=== PATIENT | female | born 1970 | race Caucasian/White ===

== ENCOUNTER 2020-08-07 08:22 | Outpatient (CLI) | payer BC, SELFPAY ==
--- NOTE | ~2020-08-07 | XR_ITS ---
XR ankle RT min 3V 08/07/2020 08:44 INDICATION: Right ankle pain PROCEDURE: 4 views right ankle COMPARISON: No prior studies for comparison. FINDINGS: Fracture, dislocation or subluxation is not identified. There is a small degenerative calca vicky enthesophyte. The soft tissues appear within normal limits. No foreign bodies are identified. IMPRESSION: 1: NO ACUTE BONE OR JOINT ABNORMALITY IDENTIFIED. Reviewed, dictated and finalized at location A. S ARCHITECT
--- NOTE | ~2020-08-07 | XR_ITS ---
XR wrist LT min 3V 08/07/2020 08:44 Indication: Left wrist pain after recent fall Procedure: 4 views of the left wrist Comparison: 02/21/2018 Findings: There is subtle demineralization at the radial styloid, unchanged. No acute fracture or tra umatic malalignment. There is an old ulnar styloid avulsion fracture. Scaphoid within normal limits. Impression: 1: No acute fracture. Reviewed, dictated and finalized at location A. POSTING SUPERVISOR Impression: 1: No acute fracture.
== END 2020-08-07 08:23 | disposition home or self-care (01) ==
PROVIDERS: PCP Family Medicine; Visit Provider Physician Assistant
DX: M25.571 Pain in right ankle and joints of right foot (principal); M25.532 Pain in left wrist
CPT/HCPCS: 73110; 73610

== ENCOUNTER 2023-04-26 08:28 | Outpatient (CLI) | payer BC, SELFPAY ==
--- NOTE | ~2023-04-26 | XR_ITS ---
EXAMINATION: XR foot RT min 3V DATE: 04/26/2023 08:53 INDICATION: Pain and bruising at the proximal right fourth and fifth toes after kicking injury TECHNIQUE: Dorsoplantar, two oblique and lateral views of the right foot were obtained. COMPARISON: None. FINDINGS: Alignment is normal. No fracture. Mild osteoarthritis at the first metatarsophalangeal and a few tars ometatarsal and interphalangeal joints. Small plantar calcaneal spur. Mild soft tissue swelling at th e fifth toe. IMPRESSION: 1. 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 No acute osseous abnormality. Reviewed, dictated and finalized at location A. IMPRESSION: 1. 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 No acute os seous abnormality.
== END 2023-04-26 08:29 | disposition home or self-care (01) ==
PROVIDERS: PCP Family Medicine; Visit Provider Physician Assistant
DX: Z12.31 Encounter for screening mammogram for malignant neoplasm of breast (principal); M19.071 Primary osteoarthritis, right ankle and foot
CPT/HCPCS: 73630

== ENCOUNTER 2025-02-20 11:27 | Emergency (ER) | payer BC, SELFPAY ==
--- NOTE | 2025-02-20 11:34 | ED_ITS ---
HPI - General Adult General Chief complaint: Chest Pain Stated complaint: tingling feeling in head/chest pains Time Seen by Provider: 02/20/25 11:36 Source: patient, RN notes reviewed and old records reviewed Mode of arrival: ambulatory Limitations: no limitations History of Present Illness HPI narrative: 54-year-old female with a history of mitral valve sticking presents for chest pain since 2:00 a.m.. Also reports that the right side of her head has a ?tingling sensation. Patient reports that when she goes from sitting to standing she feels like she is going to pass out. Reports constant tightness of her chest. Patient reports that last time she felt normal was approximately 8:00 p.m. last night, did take a sinus medication Patient denies any vomiting, shortness of breath Denies taking medications daily States that she works for [employer], had her blood pressure taken last night which she reports as 130s over 100s. Related Data Allergies Allergy/AdvReac Type Severity Reaction Status Date / Time No Known Allergies Allergy Unknown Verified 02/20/25 11:56 Review of Systems Review of Systems: All systems reviewed & are unremarkable except as noted in HPI and below Constitutional: Constitutional: Reports no additional constitutional complaints, Denies body ache(s), Denies chills and Denies fever(s) ENT: Reports system reviewed and no additional complaints, except as docu mented Cardiovascular: Cardiovascular: Reports as per HPI, Reports chest pain, Denies syncope, Denies leg edema, Reports lightheadedness and Denies dyspnea Respiratory: Respiratory: Reports no additional respiratory complaints, Denies chest congestion, Denies cough and Denies dyspnea Neurologic: Reports as per HPI and Reports tingling (right side of head) PMFSH Past Medical History Medical History Mitral valve disease Surgical History Surgical History History of hernia surgery Comments At the time of my signature, I reviewed and agree with the nursing past medical, surgical, social, and family history. There is no relevant family history pertinent to the patient complaint. Exam Const: General: cooperative, healthy appearing, comfortable, no acute distress, well developed, alert and well nourished Nutritional Appearance: well nourished and obese Orientation/consciousness: patient oriented x3 Limitations: no limitations HENMT: Head: normal to inspection Mouth: Yes Normal oral and palatal mucosa present, Yes lip normal, Yes tongue normal and Yes moist mucous membranes Eyes: General: appearance normal, both eyes and all related structures Alignment and Position: alignment normal Neck: Neck: normal visual inspection, full ROM, no lymphadenopathy and no meningeal signs Chest: Chest palpation & inspection: normal inspection of the chest Resp: Effort & Inspection: normal respiratory effort and able to speak in complete sentences Auscultation: clear to auscultation bilaterally, no crackles, no rales, no rhonchi and no wheezes Cardio: Rate: regular rate GI: GI Palp: No abdominal tenderness Skin: General skin exam: normal color and no rashes or lesions noted Neuro: General: patient oriented x3, gait normal, moves all extremities and no meningeal signs Cognition (Neuro): normal cognition Speech: normal speech Gait exam (Neuro): Normal gait present Extrem: General: normal to inspection, full ROM, capillary refill normal and normal gait Psych: Appearance: grossly normal and well kempt Mental Status: mental status grossly normal Speech and movement: Normal speech and movement present and Clear speech present Affect: normal affect Attitude: cooperative Course Course Level of Care: Express Care Visit Vital Signs Vital signs: Vital Signs Temperature 97.6 F 02/20/25 11:40 Pulse Rate 64 02/20/25 11:40 Respiratory Rate 20 02/20/25 11:40 Blood Pressure 192/81 H 02/20/25 11:40 Pulse Oximetry 100 02/20/25 11:40 Oxygen Delivery Room Air 02/20/25 11:40 Temperature 97.6 F 02/20/25 11:40 Pulse Rate 64 02/20/25 11:40 Respiratory Rate 20 02/20/25 11:40 Blood Pressure 192/81 H 02/20/25 11:40 Pulse Oximetry 100 02/20/25 11:40 Oxygen Delivery Room Air 02/20/25 11:40 Reviewed Medical Decision Making MDM Narrative Medical decision making narrative: Patient sitting comfortably in exam room. Nontoxic, vitals stable. Patient in no acute distress Patient presents with tingling on the right side of her head, chest pain, type chest tightness Patient being transferred for higher level of care Transfer instructions reviewed with patient, offered EMS, she declined. Family member reports that they will drive. All questions have been answered, and the patient deny any further questions. Some parts of this dictation were generated by voice recognition software and may contain typographical and/or grammatical inaccuracies. Differential Diagnosis Differential Diagnosis: Atypical chest pain, non STEMI, STEMI, costochondritis, COPD, asthma, stroke Medical Records Medical records reviewed: Yes I reviewed the external patient's medical records. Vital Signs Vital Signs: Vital Signs Temperature 97.6 F 02/20/25 11:40 Pulse Rate 64 02/20/25 11:40 Respiratory Rate 20 02/20/25 11:40 Blood Pressure 192/81 H 02/20/25 11:40 Pulse Oximetry 100 02/20/25 11:40 Oxygen Delivery Room Air 02/20/25 11:40 Temperature 97.6 F 02/20/25 11:40 Pulse Rate 64 02/20/25 11:40 Respiratory Rate 20 02/20/25 11:40 Blood Pressure 192/81 H 02/20/25 11:40 Pulse Oximetry 100 02/20/25 11:40 Oxygen Delivery Room Air 02/20/25 11:40 Reviewed Lab Data Lab results reviewed: Yes I reviewed the patient's lab results. Labs: Reviewed ECG Data EKG #1: Attestation: I personally reviewed and interpreted this ECG as follows: ECG completion date: 02/20/25 ECG completion time: 11:46 Prior ECG tracings: not available for review Interpretation: Sinus rhythm, possible anterior myocardial infarction of indeterminate age, abnormal EKG. No ST elevation or depression noted at this time. Ventricular rate of 64, [place] 196, QRS 89. Critical Care Time Critical Care Time Critical Care Time: No Discharge Plan Discharge Clinical Impression: Chest pain Patient Disposition: Acute Care Hospital Condition: Stable Patient Language: Frisian Prescriptions: No Action lidocaine [Lidoderm] 5 % adhesive patch,medicated 1 patch topical DAILY Qty: 15 0RF Rx Instructions: leave on most painful area for up to 12 hrs Follow-up/Referrals: Quiana,SAGE Sandoval [Primary Care Provider, Family Practice]
[2025-02-20 11:40] VITALS: BP 192/81; PULSE 64; RESP 20; TEMP 36.4; O2SAT 100
--- NOTE | 2025-02-20 12:09 | ECG_ITS ---
Test Date: 2025-02-20 11:46:22 Measurements Intervals [place] Rate: 64 P: 30 AL: 198 QRS: 1 QRSD: 89 T: 16 QT: 405 QTc: 420 Interpretive Statements SINUS RHYTHM VOLTAGE CRITERIA FOR LVH BORDERLINE R WAVE PROGRESSION, ANTERIOR LEADS BORDERLINE ECG No previous ECG available for comparison Electronically Signed On 02-20-2025 12:12:17 CDT by Ruben Chan D.O.
== END 2025-02-20 11:53 | disposition short-term general hospital (02) ==
PROVIDERS: Emergency Provider Nurse Practitioner; PCP Physician Assistant
DX: R07.9 Chest pain, unspecified (principal); R94.31 Abnormal electrocardiogram [ECG] [EKG]; I34.0 Nonrheumatic mitral (valve) insufficiency
CPT/HCPCS: 93005; 99213; G0463

== ENCOUNTER 2025-02-20 12:13 | Emergency (ER) | payer BC, SELFPAY ==
[2025-02-20] VITALS (14 sets, daily range): BP systolic 159–166; BP diastolic 82–88; PULSE 61–69; RESP 10–22; O2SAT 99–100
--- NOTE | ~2025-02-20 | XR_ITS ---
EXAMINATION: XR chest 2V 02/20/2025 12:49 INDICATION: Chest pain PROCEDURE: 2 view chest COMPARISON: 09/10/2013 FINDINGS: The lungs are clear. The cardiomediastinal silhouette is within normal limits. There are no pleural effusions. There is no pneumothorax suspected. IMPRESSION: 1: NO ACUTE CARDIOPULMONARY DISEASE. Reviewed, dictated and finalized at location O.
--- NOTE | 2025-02-20 12:15 | ECG_ITS ---
Test Date: 2025-02-20 12:23:56 Measurements Intervals [place] Rate: 62 P: 34 GA: 195 QRS: -2 QRSD: 90 T: 12 QT: 422 QTc: 431 Interpretive Statements SINUS RHYTHM VOLTAGE CRITERIA FOR LVH BORDERLINE ECG Compared to ECG 02/20/2025 11:46:22 No significant changes Electronically Signed On 02-20-2025 12:54:59 CDT by Ruben Chan D.O.
--- OUTSIDE RECORDS SUMMARY | 2025-02-20 12:17 | XMS_ITS | Clinical Summary ---
Author Organization [facility] Address [address] [place] [address] Care Team Providers Care Quantitative Software Engineer Name Role Phone Miscellaneous, Not In File Primary Care Provider Unavailable Allergies No known active allergies Medications fluticasone propionate (FLONASE) 50 mcg/actuation nasal spray fluticasone propionate 50 mcg/actuation nasal spray,suspension Active losartan (COZAAR) 25 mg tablet losartan 25 mg tablet Active Active Problems Problem Noted Date Diagnosed Date Palpitations 12/11/2018 Anxiety 06/18/2018 Headache 06/18/2018 Hypertensive disorder 06/18/2018 Mitral valve regurgitation 06/18/2018 Social History Tobacco Use Types Packs/Day Years Used Date Smoking Tobacco: Never Smokeless Tobacco: Never Tobacco Cessation:Counseling Given: Not Answered Comments No Sex and Gender Information Value Date Recorded Sex Assigned at Not on file 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 Gender Identity Not on file Sexual Orientation Not on file Obstetrics History Last Filed Vital Signs Vital Sign Reading Time Taken Comments Blood Pressure 126/76 11/02/2019 1:00 AM CDT Pulse 79 11/02/2019 1:00 AM CDT Temperature 37.1 C (98.8 F) 11/01/2019 11:36 PM CDT Respiratory Rate 14 11/02/2019 1:00 AM CDT Oxygen Saturation 100% 11/02/2019 1:00 AM CDT Inhaled Oxygen Concentration - - Weight 83.5 kg (184 lb) 11/01/2019 11:34 PM CDT Height 149.9 cm (4' 11) 11/01/2019 11:34 PM CDT Body Mass Index 37.16 11/01/2019 11:34 PM CDT Plan of Treatment Health Maintenance Due Date Last Done Comments Breast Cancer Screening-Mammogram 1972 Cervical Cancer Screening 1972 Colon Cancer Screening-Colonoscopy 1972 Depression Screening 1972 Hepatitis C Screening 1972 DTaP/Tdap/Td Vaccine (1 - Tdap) 11/26/1983 Hepatitis B Screening 1990 Regular Well Visit/Exam 18-64 1990 Zoster Vaccine (1 of 2) 2022 Influenza Vaccine (#1) 2025 05/02/2019 Pneumococcal vaccine <65 Aged Out No longer eligible based on patient's age to complete this topic Insurance [employer] OOS Care Teams Quantitative Software Engineer Relationship Specialty Start Date End Date Miscellaneous, Not In File PCP - General 11/02/19
[2025-02-20 12:34] LABS: Hematocrit 45.3 % (37.0-47.0); Hemoglobin 13.9 g/dL (12.0-15.0); Immature Granulocyte Percent A 0.3 % (0-0.5); Lymphocytes Absolute Auto 1.86 K/mm3 (0.9-3.2); Mean Corpuscular HGB Conc 30.7 g/dl (32-36); Mean Corpuscular Hemoglobin 28.0 pg (26-34); Mean Corpuscular Volume 91.1 fl (80-100); Nucleated Red Blood Cells Absolute Auto 0.000 K/mm3 (0.0-0.012); Nucleated Red Blood Cells Perc 0.0 % (0.0-0.2); Platelet Count Result 268 k/mm3 (150-375); Red Blood Count 4.97 M/mm3 (4.2-5.4); White Blood Count 8.0 K/mm3 (4.5-10.0)
--- NOTE | 2025-02-20 12:39 | ED_ITS ---
HPI - Chest Pain General Chief Complaint: Chest Pain Stated Complaint: sent from , chest tightness Time Seen by Provider: 02/20/25 12:17 History of Present Illness HPI narrative: This is a 54-year-old female with history of mitral valve prolapse he presents to the ED for chest pain. Patient states that yesterday, she had onset of nasal congestion and postnasal drip. She states that while she was at work at [employer], she began to feel a sternal chest tightness that has not changed in severity or quality since then. Denies shortness of breath, fevers, chills, nausea, vomiting, diarrhea, constipation, abdominal pain. Related Data Allergies Allergy/AdvReac Type Severity Reaction Status Date / Time No Known Allergies Allergy Unknown Verified 02/20/25 11:56 Review of Systems 2 Review of Systems: Gen.: Denies fevers or chills Eyes: Denies eye pain or visual change ENT: Denies congestion Respiratory: Denies shortness of breath or cough CV: As per HPI GI: Denies abdominal pain nausea, emesis or diarrhea denies burning, urgency, frequency or hematuria Musculoskeletal: Denies back pain or muscle pain Neuro: Denies numbness, tingling, weakness or focal weakness Skin: Denies rash Except as documented, all other systems reviewed and negative PMFSH Past Medical History Medical History Mitral valve disease Surgical History Surgical History History of hernia surgery Exam 2 Narrative: APPEARANCE: No acute distress, nontoxic, resting in bed EYES: EOMI HEENT: Normocephalic, atraumatic, OMM RESPIRATORY: No respiratory distress Clear to auscultation bilaterally with no rhonchi wheezing or rales. CARDIOVASCULAR: Regular rate and rhythm without murmurs rubs or gallops. ABDOMINAL: Soft, nontender, nondistended, no rebound or guarding MUSCULOSKELETAl: Moves all extremities. No clubbing, cyanosis or edema. NEURO: Awake and alert. Following commands, speech normal, no focal deficits SKIN:: Warm, dry. No rashes lesions or abrasions PSYCHIATRIC: Normal affect/mood, Course Vital Signs Vital signs: Vital Signs Pulse Rate 69 02/20/25 12:19 Respiratory Rate 18 02/20/25 12:19 Pulse Oximetry 100 08/22/25 12:19 Pulse Rate 67 02/20/25 16:06 Respiratory Rate 20 02/20/25 16:06 Blood Pressure 166/88 H 02/20/25 14:02 Pulse Oximetry 99 02/20/25 16:06 Oxygen Delivery Room Air 02/20/25 12:23 MDM - Chest Pain MDM Narrative Medical decision making narrative: 54-year-old female who presented to the ED for sternal chest tightness. On initial evaluation, patient was in no acute distress, afebrile, hemodynamically stable. Patient's EKGs and labs are without significant high risk changes. Cardiac risk factors reviewed. Patient is felt likely low risk for ACS and reasonable for further risk stratification testing as an outpatient. Pain was not sudden or maximal in onset without tearing or ripping quality. No other signs of symptoms suggest aortic dissection. A low-risk Wells criteria is noted, PE is felt to be unlikely. No pneumonia seen on evaluation today. Patient is felt to be a reasonable candidate for continued evaluation as an outpatient. Patient was given prescription for Lidoderm. She was advised follow-up with PCP in the next week for evaluation. Patient was agreeable to plan. Given strict return precautions. Differential Diagnosis Differential diagnosis: Likely atypical chest pain, costochondritis, chest pain and other Medical Records Data Attestation: I reviewed the patient's medical records. Lab Data Attestation: I reviewed the patient's lab results. 02/20/25 12:29 02/20/25 12:29 Labs: Lab Results 02/20/25 02/20/25 Range/Units 12:29 14:59 WBC 8.0 (4.5-10.0) K/mm3 RBC 4.97 (4.2-5.4) M/mm3 Hgb 13.9 (12.0-15.0) g/dL Hct 45.3 (37.0-47.0) % MCV 91.1 (80-100) fl MCH 28.0 (26-34) pg MCHC 30.7 L (32-36) g/dl RDW 13.3 (11.5-14.5) % Plt Count 268 (150-375) k/mm3 MPV 9.0 (7.4-10.4) fl Immature Gran % (Auto) 0.3 (0-0.5) % Neut % (Auto) 67.7 (45.5-73.1) % Lymph % (Auto) 23.4 (18.3-44.2) % [place] % (Auto) 6.7 (2.6-8.5) % Eos % (Auto) 1.3 (0-4.4) % Baso % (Auto) 0.6 (0.2-1.2) % Lymph # (Auto) 1.86 (0.9-3.2) K/mm3 [place] # (Auto) 0.5 (0.1-0.6) K/mm3 Eos # (Auto) 0.1 (0-0.3) K/mm3 Baso # (Auto) 0.1 (0.0-0.1) K/mm3 Abs Immat Gran (auto) 0.02 (0.00-0.031) K/mm3 Absolute Neuts (auto) 5.4 (1.3-6.7) K/mm3 Absolute Nucleated RBC 0.000 (0.0-0.012) K/mm3 Nucleated RBC % 0.0 (0.0-0.2) % PT 12.8 (11.1-14.7) Seconds INR 1.0 APTT 26.6 (22.3-36.8) Seconds Sodium 137 (137-145) mmol/L Potassium 4.2 (3.4-5.0) mmol/L Chloride 104 (98-107) mmol/L Carbon Dioxide 25 (22-30) mmol/L Anion Gap 8 (4-12) mmol/L BUN 10 (7-17) mg/dL Creatinine 0.61 L (0.7-1.0) mg/dL Estim Creat Clear Calc Not Reportable Estimated GFR > 60 (59 - ) Glucose 91 (65-110) mg/dL Calcium 9.5 (8.4-10.2) mg/dL Total Bilirubin 1.2 (0.2-1.3) mg/dL AST 26 (14-36) U/L ALT 18 (6-35) U/L Alkaline Phosphatase 64 (38-126) U/L Troponin I 0.015 0.012 (0.000-0.034) ng/mL NT-Pro-B Natriuret Pep 303 H (19.9-100) pg/mL Total Protein 7.7 (6.3-8.2) g/dL Albumin 4.5 (3.5-5.1) g/dL Lipase 38 (23-300) U/L Imaging Data Radiologist's impression: Impressions Chest X-Ray 02/20/25 12:50 IMPRESSION: 1: NO ACUTE CARDIOPULMONARY DISEASE. ECG Data EKG #1: ECG completion date: 02/20/25 ECG completion time: 12:23 Prior ECG tracings: not available for review Interpretation: Normal sinus rhythm rate of 62, normal axis, normal intervals, redo acute ST or T-wave changes EKG #2: ECG completion date: 02/20/25 ECG completion time: 15:12 Interpretation: Normal sinus rhythm rate of 61, normal axis, normal intervals, no acute ST or T- wave changes. Discharge Plan Discharge Clinical Impression: Costalchondritis Patient Disposition: Home Condition: Stable Instructions: Antibiotic Form, Costochondritis (ED) Additional Instructions: Lab work and imaging showed no evidence of heart damage at this time.. You were given prescriptions for Lidoderm, take as prescribed. Follow up with your PCP in the next week for reevaluation. Return to the ED for new or worsening symptoms. Patient Language: Stateless Prescriptions: New lidocaine [Lidoderm] 5 % adhesive patch,medicated 1 patch topical DAILY Qty: 15 0RF Rx Instructions: leave on most painful area for up to 12 hrs Follow-up/Referrals: Quiana,SAGE Sandoval [Primary Care Provider, Family Practice]
[2025-02-20 12:44] LABS: Partial Thromboplastin Time 26.6 Seconds (22.3-36.8)
--- OUTSIDE RECORDS SUMMARY | 2025-02-20 12:45 | XMS_ITS | Clinical Summary ---
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
[2025-02-20 12:50] LABS: Alanine Aminotransferase 18 U/L (6-35); Albumin Level 4.5 g/dL (3.5-5.1); Alkaline Phosphatase 64 U/L (38-126); Anion Gap 8 mmol/L (4-12); Aspartate Amino Transferase 26 U/L (14-36); Bilirubin,Total 1.2 mg/dL (0.2-1.3); Blood Urea Nitrogen 10 mg/dL (7-17); Calcium 9.5 mg/dL (8.4-10.2); Carbon Dioxide 25 mmol/L (22-30); Chloride 104 mmol/L (98-107); Estimated Glomerular Filt Rate > 60; Glucose 91 mg/dL (65-110); Lipase 38 U/L (23-300); Potassium 4.2 mmol/L (3.4-5.0); Sodium 137 mmol/L (137-145); Total Protein 7.7 g/dL (6.3-8.2)
[2025-02-20 13:00] LABS: Troponin I 0.015 ng/mL (0.000-0.034)
[2025-02-20] MEDS: LIDOCAINE 5% PATCH 1 PATCH TRANSDERM (13:09)
[2025-02-20] MEDS: KETOROLAC 30 MG/ML VIAL (*BKC) IV PUSH (13:09)
[2025-02-20 13:18] LABS: NT Pro B Type Natriuretic Pept 303 pg/mL (19.9-100)
[2025-02-20 13:26] LABS: INR 1.0; Prothrombin Time 12.8 Seconds (11.1-14.7)
--- NOTE | 2025-02-20 14:52 | ECG_ITS ---
Test Date: 2025-02-20 15:12:01 Measurements Intervals [place] Rate: 61 P: 43 MD: 200 QRS: 2 QRSD: 89 T: 15 QT: 432 QTc: 436 Interpretive Statements SINUS RHYTHM VOLTAGE CRITERIA FOR LVH BORDERLINE ECG Compared to ECG 02/20/2025 12:23:56 NO SIGNIFICANT CHANGE Electronically Signed On 02-20-2025 15:28:12 CDT by Ruben Chan D.O.
[2025-02-20 15:35] LABS: Troponin I 0.012 ng/mL (0.000-0.034)
== END 2025-02-20 16:19 | disposition home or self-care (01) ==
PROVIDERS: Emergency Medicine; Emergency Provider Student in an Organized Health Care Education/Training Program; PCP Physician Assistant
DX: M94.0 Chondrocostal junction syndrome [Tietze] (principal); I34.1 Nonrheumatic mitral (valve) prolapse; R94.31 Abnormal electrocardiogram [ECG] [EKG]
CPT/HCPCS: 36415; 71046; 80053; 83690; 83880; 84484; 85025; 85610; 85730; 93005; 96374; 99284; A9270; J1885